=== PATIENT | female | born 1945 | race Caucasian/White ===

== ENCOUNTER → 2016-12-05 | Outpatient (CLI) | payer MEDICARE, BC ==
[~2016-12-05] MED LIST: BENICAR HCT 401 EACH PO; DILTIAZEM 24HR240 MG PO; GABAPENTIN300 MG PO; LEVOTHYROXINE25 MCG PO; SIMVASTATIN40 MG PO; TRAMADOL HCL50 MG PO
== END | disposition home or self-care (01) ==
LOC: CDC 10:48
DX: R94.31 Abnormal electrocardiogram [ECG] [EKG] (principal)
CPT/HCPCS: 93000

== ENCOUNTER → 2017-10-28 | Outpatient (CLI) | payer MEDICARE, BC | END | disposition home or self-care (01) | LOC: CDC 11:23 | DX: Z01.810 Encounter for preprocedural cardiovascular examination (principal); M75.121 Complete rotator cuff tear or rupture of right shoulder, not specified as traumatic; M75.41 Impingement syndrome of right shoulder; I44.0 Atrioventricular block, first degree; R94.31 Abnormal electrocardiogram [ECG] [EKG] | CPT/HCPCS: 93000 ==